=== PATIENT | female | born 1935 | race Caucasian/White ===

== ENCOUNTER 2020-10-05 13:42 | Emergency (ER) | payer MEDICARE, OTHER ==
[2020-10-05] MEDS ORDERED: Ondansetron 4 MG/2 ML SDV IVPUSH ONE (14:13)
[2020-10-05] MEDS ORDERED: Loperamide 2 MG Cap PO ONE (14:14)
[2020-10-05] MEDS ORDERED: Sodium Chloride 0.9% 1,000 ML IV SCH (14:15)
--- NOTE | 2020-10-05 14:20 | EDM.PDOC ---
ED HPI GENERAL MEDICAL PROBLEM - General Chief Complaint: Gastrointestinal Problem Stated Complaint: DIARRHEA Time Seen by Provider: 10/05/20 13:57 Source of Information: Reports: Patient, RN Notes Reviewed History Limitations: Reports: No Limitations - History of Present Illness INITIAL COMMENTS - FREE TEXT/NARRATIVE: Patient is a 85-year-old female who presents to the ER for the evaluation of her diarrhea. Patient notes that around 2 AM this morning, she got a stomach ache, she took some Tums for this and went back to bed. She woke up in the morning and try to take some Pepto was a stomach ache panel lingered however she vomited a little bit of this up. She states that she has had about 10 episodes of runny stools since then, everything seems to just go straight through her. She points to her mid abdomen as a point of pain in her abdomen. States has been constant since it started and she is not noted any factors that make it a little bit better a little bit worse. States it did not radiate anywhere. States that she does not think she ate any questionable food yesterday that would have caused this, she is not known to be around any known sick contacts. No one in a house is sick like this. Patient felt a little chilled earlier but she has had no fever, she did have some nausea 1 emesis and diarrhea but no cough or shortness of breath. Primary care provider is Dr. Robert. Of note the patient is a very petite lady, blood pressure at time of triage was 83/61, heart rate was 103, temperature is 98.0 F respiratory rate 16 breaths/min, O2 sats 95% on room air. Lower Abdomen Pain Score (Numeric/FACES): 8 - Related Data Allergies Allergy/AdvReac Type Severity Reaction Status Date / Time No Known Allergies Allergy Verified 10/05/20 13:59 Home Meds: Home Meds Calcium Carbonate [Calcium] 500 mg PO DAILY 10/05/20 [History] Ondansetron [Zofran ODT] 4 mg PO Q8H PRN #15 tab.dis 10/05/20 [Rx] Simvastatin 40 mg PO DAILY 10/05/20 [History] oxyCODONE HCl/Acetaminophen [Oxycodone-Acetaminophen 5-325] 1 tab PO Q4HR PRN 10/05/20 [History] Past Medical History Cardiovascular History: Reports: High Cholesterol Genitourinary History: Reports: Urinary Incontinence (urge/stress incontinence) - Past Surgical History HEENT Surgical History: Reports: Cataract Surgery, Tonsillectomy Social & Family History - Tobacco Use Tobacco Use Status *Q: Former Tobacco User Used Tobacco, but Quit: Yes Month/Year Tobacco Last Used: 30 years ago - Caffeine Use Caffeine Use: Reports: None - Recreational Drug Use Recreational Drug Use: No ED ROS GENERAL - Review of Systems Review Of Systems: Comprehensive ROS is negative, except as noted in HPI. ED EXAM, GI/ABD - Physical Exam Exam: See Below Exam Limited By: No Limitations General Appearance: Alert, WD/WN, No Apparent Distress Eyes: Bilateral: Normal Appearance Throat/Mouth: Normal Inspection, Normal Lips, Normal Teeth, Normal Gums, Normal Oropharynx, Normal Voice, No Airway Compromise Respiratory/Chest: No Respiratory Distress, Lungs Clear, Normal Breath Sounds, No Accessory Muscle Use, Chest Non-Tender Cardiovascular: Normal Peripheral Pulses, Regular Rate, Rhythm, No Edema GI/Abdominal Exam: Soft, Tender (epigastrium and over mid abdomen mainly), Abnormal Bowel Sounds (hypoactive x 4 quadrants) Extremities: Normal Inspection, Normal Capillary Refill Neurological: Alert, Oriented, Normal Cognition, No Motor/Sensory Deficits Psychiatric: Normal Affect, Normal Mood Skin Exam: Warm, Dry, Intact, Normal Color, No Rash Course - Vital Signs Last Recorded V/S: Last Vital Signs Temp 98 F 10/05/20 13:56 Pulse 103 H 10/05/20 13:56 Resp 16 10/05/20 13:56 BP 83/61 L 10/05/20 13:56 Pulse Ox 95 10/05/20 13:56 Orthostatic Blood Pressure [ 72/57 Standing] Orthostatic Blood Pressure [ 77/65 Sitting] Orthostatic Blood Pressure [ 96/60 Supine] - Orders/Labs/Meds Orders: Active Orders 24 hr Category Date Time Status Orthostatic Vital Signs [RC] ASDIRECTED Care 10/05/20 14:13 Active Abdomen Pelvis w Cont [CT] Stat Exams 10/05/20 14:13 Taken UA W/MICROSCOPIC [URIN] Stat Lab 10/05/20 14:13 Ordered Sodium Chloride 0.9% [Normal Saline] 1,000 ml Med 10/05/20 14:15 Active IV ASDIRECTED Sodium Chloride 0.9% [Saline Flush] Med 10/05/20 15:00 Active 10 ml FLUSH ASDIRECTED Medication Orders Sodium Chloride (Normal Saline) 1,000 mls @ 999 mls/hr IV ASDIRECTED [place] Last Admin: 10/05/20 14:30 Dose: 999 mls/hr Documented by: CHALO Sodium Chloride (Sodium Chloride 0.9% 10 Ml Syringe) 10 ml FLUSH ASDIRECTED [place] Last Admin: 10/05/20 15:10 Dose: 10 ml Documented by: GURPREET Labs: Laboratory Tests 10/05/20 10/05/20 Range/Units 14:30 14:30 WBC 13.29 H (3.98-10.04) K/mm3 RBC 4.68 (3.98-5.22) M/mm3 Hgb 14.8 (11.2-15.7) gm/dl Hct 45.4 H (34.1-44.9) % MCV 97.0 H (79.4-94.8) fl MCH 31.6 (25.6-32.2) pg MCHC 32.6 (32.2-35.5) g/dl RDW Std Deviation 46.6 H (36.4-46.3) fL Plt Count 204 (182-369) K/mm3 MPV 9.4 (9.4-12.3) fl Neut % (Auto) 94.1 H (34.0-71.1) % Lymph % (Auto) 2.8 L (19.3-51.7) % Bucks % (Auto) 2.8 L (4.7-12.5) % Eos % (Auto) 0 L (0.7-5.8) Baso % (Auto) 0.1 (0.1-1.2) % Neut # (Auto) 12.52 H (1.56-6.13) K/mm3 Lymph # (Auto) 0.37 L (1.18-3.74) K/mm3 Bucks # (Auto) 0.37 H (0.24-0.36) K/mm3 Eos # (Auto) 0.00 L (0.04-0.36) K/mm3 Baso # (Auto) 0.01 (0.01-0.08) K/mm3 Manual Slide Review Abnormal smear Sodium 142 (136-145) mEq/L Potassium 4.4 (3.5-5.1) mEq/L Chloride 105 (98-107) mEq/L Carbon Dioxide 21 (21-32) mEq/L Anion Gap 20.4 H (5-15) BUN 29 H (7-18) mg/dL Creatinine 1.6 H (0.55-1.02) mg/dL Est Cr Clr Drug Dosing 21.75 mL/min Estimated GFR (MDRD) 31 (>60) mL/min BUN/Creatinine Ratio 18.1 H (14-18) Glucose 177 H (83-115) mg/dL Calcium 9.4 (8.5-10.1) mg/dL Total Bilirubin 0.7 (0.2-1.0) mg/dL AST 22 (15-37) U/L ALT 24 (14-59) U/L Alkaline Phosphatase 88 (46-116) U/L Total Protein 8.3 H (6.4-8.2) g/dl Albumin 4.5 (3.4-5.0) g/dl Globulin 3.8 gm/dL Albumin/Globulin Ratio 1.2 (1-2) Lipase 84 (73-393) U/L Meds: Medications Generic Name Dose Route Start Last Admin Trade Name Freq PRN Reason Stop Dose Admin Sodium Chloride 1,000 mls @ 999 mls/hr 10/05/20 14:15 10/05/20 14:30 Normal Saline IV 999 mls/hr ASDIRECTED [place] Administration Sodium Chloride 10 ml 10/05/20 15:00 10/05/20 15:10 Sodium Chloride 0.9% 10 Ml Syringe FLUSH 10 ml ASDIRECTED [place] Administration Discontinued Medications Generic Name Dose Route Start Last Admin Trade Name Freq PRN Reason Stop Dose Admin Diatrizoate Meglum/Diatrizoate Sod 120 ml 10/05/20 14:49 10/05/20 15:09 Diatrizoate Meglumine/Diatrizoate Sodium 37% 120 Ml Bottle PO 10/05/20 14:50 30 ml ONETIME ONE Administration Sodium Chloride 1,000 mls @ 999 mls/hr 10/05/20 15:04 10/05/20 16:01 Normal Saline IV 10/05/20 16:04 999 mls/hr ONETIME ONE Administration Iopamidol 100 ml 10/05/20 14:49 10/05/20 15:10 Iopamidol 612 Mg/Ml 100 Ml Bottle IVPUSH 10/05/20 14:50 100 ml ONETIME ONE Administration Loperamide HCl 4 mg 10/05/20 14:14 10/05/20 14:32 Loperamide 2 Mg Cap PO 10/05/20 14:15 4 mg ONETIME ONE Administration Ondansetron HCl 4 mg 10/05/20 14:13 10/05/20 14:28 Ondansetron 4 Mg/2 Ml Sdv IVPUSH 10/05/20 14:14 4 mg ONETIME ONE Administration - Re-Assessments/Exams Free Text/Narrative Re-Assessment/Exam: 10/05/20 14:20 Patient presents to the ER for her diarrhea, highly suspect a viral gastroenteritis in nature. Due to her abdomen pain however we will obtain CT to make sure there is nothing structurally wrong. She will be given some fluids, IV Zofran, we will have some baseline labs for evaluation. Orthostatic vital signs from laying were 75/57 with a heart rate of 97, sitting 77/65 heart rate 105, standing 67/51 heart rate 111. Patient reports no dizziness with these findings however. 10/05/20 15:07 Most labs have resulted, the patient's white cell count is mildly elevated at 13.29 with 94% neutrophils on the auto differential, CMP is remarkable for an elevated anion gap of 20.4, potassium and sodium are within normal limits, creatinine is elevated at 1.6, GFR is low at 31, lipase is within normal limits at 84. this could be due to dehydration from the diarrhea as I do not have any sort of labs to compare to. 10/05/20 16:[address] has been performed and there is some pancreatic parenchyma that demonstrates fatty infiltration with haziness of the pancreatic parenchyma radiologist is questioning acute pancreatitis versus maturation change. Due to the lipase not being elevated, I do believe this is more of the fatty infiltration. I did go over CT results and lab findings with Dr. Keen, our surgeon on-call and she would agree that this does not look like a pancreatitis picture. The patient's blood pressures did not improve much after the first bag of fluids, so she will get a second bag of fluids for ongoing management. We will reassess her after the second bag of fluids, and hopefully try to get her home with general recommendations. 10/05/20 16:22 I did reassess the patient at bedside, she states she is feeling better. She notes that she has an appointment with her primary care provider on Wednesday, so I did caution her to keep that for reevaluation. Departure - Departure Time of Disposition: 16:23 Disposition: Home, Self-Care 01 Condition: Good Clinical Impression: Diarrhea Qualifiers: Diarrhea type: unspecified type Qualified Code(s): R19.7 - Diarrhea, unspecified - Discharge Information *PRESCRIPTION DRUG MONITORING PROGRAM REVIEWED*: No *COPY OF PRESCRIPTION DRUG MONITORING REPORT IN PATIENT ELI: No Instructions: Diarrhea, Adult, [id number], Food Choices to Help Relieve Diarrhea, Adult Referrals: Alf Robert MD [Primary Care Provider] - Forms: ED Department Discharge Additional Instructions: You have been evaluated in the ED for nausea/vomiting/diarrhea. It is likely that this is caused from a viral gastroenteritis. You have received IV fluid in the ED to help with the dehydration from the vomiting and diarrhea. Over the next 24-48 hours please try to limit diet to clear liquids and advance as tolerated to a bland diet to alleviate symptoms of nausea/vomiting/diarrhea. Please use the Zofran every 8 hours as needed for nausea. This medication was electronically sent to the [place] [facility] located in the [facility]. If you keep having loose stools, you may use [id number] loperamide (Imodium) for antidiarrheal purposes. You can take 1 tablet (2mg) after each loose stool, but do not exceed more than 16 mg in a 24-hour time span Keep your appointment with your primary care providers for this week Wednesday for follow-up and reevaluation. Please return to the ED if your symptoms should change or worsen. Sepsis Event Note (ED) - Evaluation Sepsis Screening Result: No Definite Risk - Focused Exam Vital Signs: Vital Signs Temp Pulse Resp BP Pulse Ox 10/05/20 13:56 98 F 103 H 16 83/61 L 95 - My Orders Last 24 Hours: My Active Orders 10/05/20 14:13 Orthostatic Vital Signs [RC] ASDIRECTED Abdomen Pelvis w Cont [CT] Stat UA W/MICROSCOPIC [URIN] Stat 10/05/20 14:15 Sodium Chloride 0.9% [Normal Saline] 1,000 ml IV ASDIRECTED 10/05/20 15:00 Sodium Chloride 0.9% [Saline Flush] 10 ml FLUSH ASDIRECTED - Assessment/Plan Last 24 Hours: My Active Orders 10/05/20 14:13 Orthostatic Vital Signs [RC] ASDIRECTED Abdomen Pelvis w Cont [CT] Stat UA W/MICROSCOPIC [URIN] Stat 10/05/20 14:15 Sodium Chloride 0.9% [Normal Saline] 1,000 ml IV ASDIRECTED 10/05/20 15:00 Sodium Chloride 0.9% [Saline Flush] 10 ml FLUSH ASDIRECTED
[2020-10-05] MEDS ORDERED: Iopamidol 612 MG/ML 100 ML Bottle IVPUSH ONE (14:49)
[2020-10-05] MEDS ORDERED: Diatrizoate Meglumine/Diatrizoate Sodium 37% 120 ML Bottle PO ONE (14:49)
[2020-10-05] MEDS ORDERED: Sodium Chloride 0.9% 10 ML Syringe FLUSH SCH (15:00)
[2020-10-05] MEDS ORDERED: Sodium Chloride 0.9% 1,000 ML IV ONE (15:04)
--- NOTE | 2020-10-07 08:33 | CT ---
CT abdomen and pelvis Technique: Multiple axial sections were obtained from above the dome of the diaphragm inferiorly through the pubic symphysis. Intravenous and oral contrast was utilized. Delayed images were obtained through the bladder. Reconstructed coronal and sagittal images were obtained. Comparison: Prior CT abdomen and pelvis study of 03/20/11. Findings: Visualized lung bases show nothing acute. Liver shows no focal parenchymal abnormality. Gallbladder shows no calcified gallstones. Small hiatal hernia is noted. Contrast is noted within the distal esophagus likely representing reflux. Spleen appears normal. Adrenal glands show no nodule. Kidneys show symmetric contrast enhancement. Two small diminished densities are is noted within the mid right kidney measuring less than 1 cm which is nonspecific but mostly likely represents a small cysts. Right kidney shows mild scarring within the upper pole with a small amount of adjacent contrast. Cyst is noted within the lower left kidney measuring 1.0 cm. Pancreas shows no focal abnormality. Abdominal aorta shows atherosclerotic change without aneurysm. Atherosclerotic change continues into the iliac vessels. Appendix is not visualized with certainty. Slight amount of fluid is seen within the rectum, no pelvic mass or adenopathy is appreciated. No free fluid is seen. Delayed images show contrast within the ureters and within the bladder. Bone window settings were reviewed. Severe degenerative change is seen at L4-5 causing spondylolisthesis at L4-5 measuring 8 mm. Severe disc space narrowing seen at L4-5 with vacuum disc phenomena. There is moderate to severe narrowing of the L3-4 disc. Impression: 1. Small hiatal hernia with gastroesophageal reflux of contrast into the esophagus. 2. Slight amount of fluid within the rectum. Please correlate if patient has any symptoms of hematuria or diarrhea. 3. Other findings as noted above which are chronic. Diagnostic code #2 I minimally disagree with preliminary report from [facility], finalized on 10/05/20, 4:30 PM CDT, code 2
== END 2020-10-05 17:15 | disposition home or self-care (01) ==
LOC: JD.ED 13:42
DX: R19.7 Diarrhea, unspecified (principal); E78.00 Pure hypercholesterolemia, unspecified; Z79.899 Other long term (current) drug therapy; Z87.891 Personal history of nicotine dependence
CPT/HCPCS: 36415; 74177; 80053; 83690; 85025; 96374; 99284; A9270; J2405; J7030; Q9963; Q9967

== ENCOUNTER 2024-02-03 15:41 | Emergency (ER) | payer MEDICARE, OTHER ==
[2024-02-03] MEDS: Acetaminophen/HYDROcodone 325-5 MG Tab PO ONE (19:14)
== END 2024-02-03 20:00 | disposition home or self-care (01) ==
LOC: JD.ED 15:41
DX: S32.591A Other specified fracture of right pubis, initial encounter for closed fracture (principal); E78.00 Pure hypercholesterolemia, unspecified; Z79.899 Other long term (current) drug therapy; W19.XXXA Unspecified fall, initial encounter
CPT/HCPCS: 72192; 72192-26; 73502-26-RT; 73502-RT; 99284; A9270-GY

== ENCOUNTER 2024-09-19 08:28 | Inpatient (IN) | payer MEDICARE, OTHER ==
[2024-09-19] MEDS ORDERED: Sodium Chloride 0.9% 10 ML Syringe FLUSH PRN (09:04)
[2024-09-19 09:45] LABS: BASOPHILS PERCENT AUTO 0.6 % (0.0-1.0); EOSINOPHILS ABSOLUTE AUTO 0.4 K/mm3 (0.0-0.4); HEMATOCRIT 37.7 % (37.0-47.0); HEMOGLOBIN 12.1 gm/dl (12.0-16.0); IMMATURE GRAN ABSOLUTE AUTO 0.02 K/mm3 (0.00-0.05); IMMATURE GRAN PERCENT AUTO 0.3 % (0.0-0.4); LYMPHOCYTES ABSOLUTE AUTO 1.4 K/mm3 (1.0-4.8); LYMPHOCYTES PERCENT AUTO 19.7 % (24.0-44.0); MEAN CORPUSCULAR HEMOGLOBIN 29.9 pg (28.0-32.0); MEAN CORPUSCULAR HGB CONC 32.1 g/dl (32.0-36.0); MEAN CORPUSCULAR VOLUME 93.1 fl (83.0-99.0); MEAN PLATELET VOLUME 9.6 fl (9.4-12.3); MONOCYTES ABSOLUTE AUTO 0.7 K/mm3 (0.0-0.8); MONOCYTES PERCENT AUTO 9.8 % (0.0-8.0); NEUTROPHILS ABSOLUTE AUTO 4.7 K/mm3 (1.8-7.7); NEUTROPHILS PERCENT AUTO 64.6 % (41.0-71.0); PLATELET COUNT,PLT 213 K/mm3 (150-400); RED BLOOD CELL COUNT 4.05 M/mm3 (4.10-5.30); WHITE BLOOD CELL COUNT,WBC 7.21 K/mm3 (3.9-11.3)
[2024-09-19] MEDS: Diltiazem 25 MG/5 ML SDV IVPUSH ONE (09:54)
[2024-09-19 10:28] LABS: A/G RATIO 1.1 (1-2); ALBUMIN 3.9 g/dl (3.4-5.0); ANION GAP 14.8 (5-15); BILIRUBIN TOTAL 0.3 mg/dL (0.2-1.0); BUN/CREATININE RATIO 24.1 (14-18); CALCIUM 9.5 mg/dL (8.5-10.1); CREATININE 1.7 mg/dL (0.55-1.02); EST CRCL DRUG DOSING (CG) 16.75 mL/min; MAGNESIUM 2.1 mg/dL (1.8-2.4); POTASSIUM,K 4.8 mEq/L (3.5-5.1); PROTEIN TOTAL,TP 7.5 g/dl (6.4-8.2); TSH 2.497 uIU/mL (0.358-3.74)
[2024-09-19 11:13] LABS: APPEARANCE,URINE CLEAR (Clear); BILIRUBIN,URINE NEGATIVE (Negative); COLOR,URINE YELLOW (Yellow); GLUCOSE,URINE NEGATIVE (Negative); KETONES,URINE NEGATIVE (Negative); LEUKOCYTE ESTERASE,URINE NEGATIVE (Negative); NITRITE,URINE NEGATIVE (Negative); OCCULT BLOOD,URINE TRACE-INTACT (Negative); PROTEIN,URINE NEGATIVE (Negative); UROBILINOGEN,URINE 0.2 (0.2-1.0)
[2024-09-19 11:28] LABS: BACTERIA,URINE FEW /hpf (FEW); MUCUS,URINE RARE /hpf (FEW); SQUAMOUS EPITHELIAL CELLS,UR 0-5 /hpf (0-5); WBC,URINE 0-5 /hpf (0-5)
[2024-09-19] MEDS ORDERED: Docusate Sodium 100 MG Cap PO PRN (11:44)
[2024-09-19] MEDS ORDERED: Polyethylene Glycol 3350 Powder 17 GM Packet PO PRN (11:44)
[2024-09-19] MEDS: Metoprolol Succinate 50 MG Tab.ER PO ONE (12:12)
[2024-09-19] MEDS: Apixaban 2.5 MG Tab PO SCH (13:50)
[2024-09-19] MEDS: Metoprolol Tartrate 5 MG/5 ML SDV IVPUSH ONE (16:41)
[2024-09-19] MEDS: Metoprolol Tartrate 50 MG Tab PO SCH (20:00)
[2024-09-20 04:39] LABS: BASOPHILS ABSOLUTE AUTO 0.1 K/mm3 (0.0-0.2); BASOPHILS PERCENT AUTO 0.8 % (0.0-1.0); EOSINOPHILS ABSOLUTE AUTO 0.4 K/mm3 (0.0-0.4); EOSINOPHILS PERCENT AUTO 5.1 % (0.0-6.0); HEMATOCRIT 35.4 % (37.0-47.0); HEMOGLOBIN 11.3 gm/dl (12.0-16.0); IMMATURE GRAN ABSOLUTE AUTO 0.01 K/mm3 (0.00-0.05); IMMATURE GRAN PERCENT AUTO 0.1 % (0.0-0.4); LYMPHOCYTES ABSOLUTE AUTO 1.9 K/mm3 (1.0-4.8); LYMPHOCYTES PERCENT AUTO 25.7 % (24.0-44.0); MEAN CORPUSCULAR HEMOGLOBIN 29.8 pg (28.0-32.0); MEAN CORPUSCULAR HGB CONC 31.9 g/dl (32.0-36.0); MEAN CORPUSCULAR VOLUME 93.4 fl (83.0-99.0); MONOCYTES ABSOLUTE AUTO 0.7 K/mm3 (0.0-0.8); MONOCYTES PERCENT AUTO 9.5 % (0.0-8.0); NEUTROPHILS ABSOLUTE AUTO 4.3 K/mm3 (1.8-7.7); NEUTROPHILS PERCENT AUTO 58.8 % (41.0-71.0); PLATELET COUNT,PLT 193 K/mm3 (150-400); RED BLOOD CELL COUNT 3.79 M/mm3 (4.10-5.30); WHITE BLOOD CELL COUNT,WBC 7.38 K/mm3 (3.9-11.3)
[2024-09-20 05:34] LABS: ALBUMIN 3.4 g/dl (3.4-5.0); ANION GAP 13.5 (5-15); BILIRUBIN TOTAL 0.4 mg/dL (0.2-1.0); BUN/CREATININE RATIO 22.5 (14-18); CALCIUM 9.1 mg/dL (8.5-10.1); CREATININE 1.6 mg/dL (0.55-1.02); EST CRCL DRUG DOSING (CG) 19.59 mL/min; MAGNESIUM 2.2 mg/dL (1.8-2.4); POTASSIUM,K 4.5 mEq/L (3.5-5.1); PROTEIN TOTAL,TP 6.7 g/dl (6.4-8.2)
[2024-09-20] MEDS: atorvaSTATin 20 MG Tab PO SCH (08:18)
[2024-09-20] MEDS: Acetaminophen/HYDROcodone 325-5 MG Tab PO PRN (08:24)
[2024-09-20] MEDS: Metoprolol Tartrate 25 MG Tab PO SCH (08:39)
[2024-09-20] MEDS ORDERED: Calcium Carbonate 500 MG Tab.Chew PO SCH (09:00)
[2024-09-20] MEDS: Acetaminophen 325 MG Tab PO PRN (10:48)
== END 2024-09-20 13:15 | disposition home or self-care (01) | DRG 309 ==
LOC: JD.ED 08:28 → JD.ICU 11:17
PROVIDERS: ADMIT Internal Medicine; ATTEND Internal Medicine
DX: I48.91 Unspecified atrial fibrillation (principal); N18.4 Chronic kidney disease, stage 4 (severe); Z66 Do not resuscitate; E87.5 Hyperkalemia; E78.00 Pure hypercholesterolemia, unspecified; M19.90 Unspecified osteoarthritis, unspecified site; R79.89 Other specified abnormal findings of blood chemistry; I12.9 Hypertensive chronic kidney disease with stage 1 through stage 4 chronic kidney disease, or unspecified chronic kidney disease; I08.0 Rheumatic disorders of both mitral and aortic valves; Z79.1 Long term (current) use of non-steroidal anti-inflammatories (NSAID); Z79.02 Long term (current) use of antithrombotics/antiplatelets; Z79.899 Other long term (current) drug therapy; Z98.49 Cataract extraction status, unspecified eye; Z90.89 Acquired absence of other organs
CPT/HCPCS: 36415; 71045; 80053; 81001; 83735; 83880; 84443; 84484; 85025; 93005; 96374; 99285; J3490; 93010; 93306; 97116-GP; 97161-GP; 97530-GP; A9270-GY

== ENCOUNTER 2024-09-26 16:34 | Emergency (ER) | payer MEDICARE, OTHER | END 2024-09-26 17:54 | disposition home or self-care (01) | LOC: JD.ED 16:34 | DX: K21.9 Gastro-esophageal reflux disease without esophagitis (principal); I48.91 Unspecified atrial fibrillation; E78.00 Pure hypercholesterolemia, unspecified; Z79.899 Other long term (current) drug therapy | CPT/HCPCS: 99283; 99284 ==

== ENCOUNTER 2025-03-02 16:49 | Emergency (ER) | payer MEDICARE, OTHER ==
[2025-03-02 17:21] LABS: BASOPHILS ABSOLUTE AUTO 0.1 K/mm3 (0.0-0.2); BASOPHILS PERCENT AUTO 0.8 % (0.0-1.0); EOSINOPHILS ABSOLUTE AUTO 0.2 K/mm3 (0.0-0.4); EOSINOPHILS PERCENT AUTO 3.6 % (0.0-6.0); IMMATURE GRAN ABSOLUTE AUTO 0.01 K/mm3 (0.00-0.05); IMMATURE GRAN PERCENT AUTO 0.2 % (0.0-0.4); LYMPHOCYTES ABSOLUTE AUTO 1.6 K/mm3 (1.0-4.8); LYMPHOCYTES PERCENT AUTO 24.3 % (24.0-44.0); MEAN PLATELET VOLUME 9.4 fl (9.4-12.3); MONOCYTES ABSOLUTE AUTO 0.8 K/mm3 (0.0-0.8); MONOCYTES PERCENT AUTO 11.7 % (0.0-8.0); NEUTROPHILS ABSOLUTE AUTO 4.0 K/mm3 (1.8-7.7); NEUTROPHILS PERCENT AUTO 59.4 % (41.0-71.0); NRBC ABSOLUTE 0.00 (0.00-0.02); NRBC PERCENT 0.0 % (0.0-0.2); PLATELET COUNT,PLT 257 K/mm3 (150-400); RED BLOOD CELL COUNT 3.54 M/mm3 (4.10-5.30); WHITE BLOOD CELL COUNT,WBC 6.66 K/mm3 (3.9-11.3)
[2025-03-02 17:57] LABS: A/G RATIO 1.1 (1-2); ALANINE AMINOTRANSFERASE,ALT 25.0 U/L (14-59); ASPARTATE AMNIOTRANSFERASE,AST 24.0 U/L (15-37); BILIRUBIN TOTAL 0.3 mg/dL (0.2-1.0); BLOOD UREA NITROGEN,BUN 29.0 mg/dL (7-18); CARBON DIOXIDE,CO2 27.0 mEq/L (21-32); CHLORIDE,CL 104.0 mEq/L (98-107); CREATINE KINASE,CK 265.0 U/L (26-192); CREATININE 1.5 mg/dL (0.55-1.02); EST CRCL DRUG DOSING (CG) 18.98 mL/min; ESTIMATED GFR 34.0 mL/min (>60); GLUCOSE RANDOM 119.0 mg/dL (70-99); POTASSIUM,K 4.6 mEq/L (3.5-5.1); PROTEIN TOTAL,TP 7.6 g/dl (6.4-8.2); SODIUM,NA 139.0 mEq/L (136-145); TROPONIN I HIGH SENSITIVITY 26.0 pg/mL (<=51)
== END 2025-03-02 18:20 ==
LOC: JD.ED 16:49
DX: R07.89 Other chest pain (principal); M19.90 Unspecified osteoarthritis, unspecified site; I48.91 Unspecified atrial fibrillation; E78.00 Pure hypercholesterolemia, unspecified; Z79.899 Other long term (current) drug therapy; Z79.01 Long term (current) use of anticoagulants
CPT/HCPCS: 36415; 71045; 71045-26; 80053; 82550; 83690; 83735; 83880; 84484; 85025; 93005; 99285